=== PATIENT | female | born 1985 | race Caucasian/White ===

== ENCOUNTER 2016-06-02 16:45 | Emergency (ER) | payer MEDICAID ==
[~2016-06-02] VITALS: Ht 154.9 cm; Wt 97.0 kg
[~2016-06-02 16:45] MED LIST: TYLETAB34 PO; ZOFR4TAB PO
[2016-06-02 16:54] VITALS: BP 136/90; PULSE 88; RESP 16; TEMP 98.9; O2SAT 96
[2016-06-02] MEDS ORDERED: SODIUM CHLORIDE 0.9% FLUSH 5 ML FLUSH IVF PRN (20:45)
[2016-06-02] MEDS ORDERED: ONDANSETRON HCL 4 MG/2 ML VIAL IVP ONE (20:45)
[2016-06-02] MEDS ORDERED: HYDR-3583 PO (20:58)
[2016-06-02] MEDS ORDERED: LYRI150C PO (20:58)
[2016-06-02 20:59] VITALS: BP 136/82; PULSE 84; RESP 18; TEMP 98.9; O2SAT 97
[2016-06-02] MEDS: SODIUM CHLOR 0.9% 1000 ML INJ 1,000 ML IV SCH ×3 (21:33→23:27)
[2016-06-02 21:40] LABS: BLOOD, URINE LARGE (NEG); GLUCOSE,URINE NEG (NEG); KETONE, URINE 40 mg/dL (NEG); NITRITE,URINE NEG (NEG)
[2016-06-02 21:47] LABS: METHOD OF COLLECTION VOIDED
[2016-06-02 21:48] LABS: URINE COLOR YELLOW (YELLW/STRAW)
[2016-06-02 21:49] LABS: BACTERIA, URINE FEW /hpf; COMMENT (UR) CULT NOT INDICATED; COMMENT2 (UR) MUCOUS PRESENT; CULTURE IF INDICATED CULT NOT INDICATED; SQUAMOUS EPITHELIAL CELL URINE > 8 /hpf (0-5)
[2016-06-02 21:52] LABS: AUTOMATED NEUTROPHIL # 7.1 TH/MM3 (1.8-7.7); BASOPHIL % 0.4 % (0.0-2.0); EOSINOPHIL # 0.2 TH/MM3 (0-0.4); EOSINOPHIL % 2.3 % (0.0-4.0); HEMATOCRIT 35.2 % (35.0-46.0); HEMO FLAGS DIFF FINAL; LYMPH % 25.4 % (9.0-44.0); LYMPHOCYTE # 2.7 TH/MM3 (1.0-4.8); MEAN CELL VOLUME 82.4 FL (80.0-100.0); MEAN CORPUSCULAR HEMOGLOBIN 27.8 PG (27.0-34.0); MEAN CORPUSCULAR HGB CONC 33.8 % (32.0-36.0); MONO % 5.5 % (0.0-8.0); NEUT % 66.4 % (16.0-70.0); PLATELET COUNT 246 TH/MM3 (150-450); RED BLOOD COUNT 4.27 MIL/MM3 (4.00-5.30); RED CELL DISTRIBUTION WIDTH 13.4 % (11.6-17.2); WHITE BLOOD COUNT 10.6 TH/MM3 (4.0-11.0)
[2016-06-02 22:01] LABS: CHLORIDE 108 MEQ/L (98-107); POTASSIUM 3.1 MEQ/L (3.5-5.1); SODIUM (NA) 141 MEQ/L (136-145)
[2016-06-02 22:04] LABS: ANION GAP 10 MEQ/L (5-15); BICARBONATE 23.3 MEQ/L (21.0-32.0)
[2016-06-02 22:05] LABS: BLOOD UREA NITROGEN 6 MG/DL (7-18)
[2016-06-02 22:07] LABS: ALT (GPT) 13 U/L (10-53); AST (GOT) 5 U/L (15-37); GLOMERULAR FILTRATION RATE 147 ML/MIN (>89)
[2016-06-02 22:09] LABS: TOTAL BILIRUBIN ADULT 0.4 MG/DL (0.2-1.0)
[2016-06-02 22:10] LABS: ALKALINE PHOSPHATASE 72 U/L (45-117)
[2016-06-02 22:25] LABS: BETA HCG QUANT 28982 MIU/ML (0-5)
[2016-06-02] MEDS ORDERED: ONDANSETRON HCL 4 MG/2 ML VIAL IV ONE (22:45)
[2016-06-02 23:17] VITALS: BP 128/80; PULSE 82; RESP 18; O2SAT 97
[2016-06-02] MEDS ORDERED: METOCLOPRAMIDE HCL 10 MG/2 ML VIAL IVS ONE (23:30)
[2016-06-03 00:32] VITALS: BP 132/78; PULSE 78; RESP 18; O2SAT 97
[2016-06-03] MEDS: SODIUM CHLOR 0.9% 1000 ML INJ 1,000 ML IV SCH (00:32)
--- NOTE | 2016-06-03 01:36 | RADHPO ---
EXAM DATE/TIME: 06/03/2016 00:41 [facility] COMPARISON: No previous studies available for comparison. INDICATIONS : Pelvic pain with . LAB(S): Beta-hC MEDICAL HISTORY : Renal calculi. . Methicillin-resistant Staphylococcus aureus. Ovarian cysts. Asthma. Renal i nfections. SURGICAL HISTORY : Cholecystectomy. ENCOUNTER: Initial ACUITY: 1 day PAIN SCORE: 6/10 LOCATION: Bilateral pelvis MEASUREMENTS: UTERUS: 9.5 x 5.7 x 4.8 cm ENDOMETRIAL STRIPE: 3 mm RIGHT OVARY: 3.8 x 3.6 x 2.5 cm LEFT OVARY: 2.9 x 2.1 x 1.6 cm FINDINGS: Within the uterus is a gestational sac the mean sac diameter corresponding to an estimated gestationa l age of 6 weeks 2 days. There are nabothian cysts suspected in the cervical region. A pole is present with an estimated gestational age of 6 weeks 5 days based on crown-rump length measurement, a nd a yolk sac is visualized. A heart rate of 132.32 beats per minute is noted. Right ovary cont ains a 2.7 x 2.3 x 2.1 cm simple cyst in the left ovary is normal. No free fluid. CONCLUSION: 1. Single viable intrauterine gestation. 2. Right ovarian cyst. Nathaniel Bingham MD on June 03, 2016 at 1:33 Board Certified Radiologist. This report was verified electronically.
[2016-06-03 02:13] VITALS: BP 126/76; PULSE 74; RESP 18; O2SAT 97
--- NOTE | 2016-06-03 02:18 | PD ---
HPI Chief Complaint: Abdominal Pain Time Seen by Provider: 20:24 Travel History International Travel<30 days: No Contact w/Intl Traveler<30days: No Traveled to known affect area: No History of Present Illness HPI The patient is a 30-year-old female, G3, P2, A0 who states she has been nauseated with vertigo for the past 3 days. She denies any headache or focal neurologic change. She states she is sexually active. She does not think she is . She said she had a fever of 101.3 several days ago. There is no fever here at this time. PFSH Past Medical History Asthma: Yes Diminished Hearing: No Genitourinary: Yes (KIDNEY INFECTIONS) Kidney Stones: Yes Immunizations Current: Yes Tetanus Vaccination: Unknown Influenza Vaccination: Yes ?: Unknown LMP: 04/25/2016 : 2 Para: 2 Past Surgical History Cholecystectomy: Yes Social History Alcohol Use: No Tobacco Use: No (QUIT SEPTEMBER 2015) Substance Use: No Allergies-Medications (Allergen,Severity, Reaction): Coded Allergies: Levaquin (Verified Allergy, Severe, anaphylaxis, 06/02/16) Ceclor (Verified Allergy, Intermediate, hives, 06/02/16) Rocephin (Verified Allergy, Intermediate, hives, swelling, 06/02/16) *MDRO Multi-Drug Resistant Organism (Verified Adverse Reaction, Unknown, ) 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 Reported Meds & Prescriptions Reported Meds & Active Scripts Active Reported Hydrocodone-Acetaminophen 10-325 mg Tab 1 Tab PO Q6H PRN Lyrica (Pregabalin) 150 Mg Cap 150 Mg PO DAILY Review of Systems Except as stated in HPI: all other systems reviewed are Neg Physical Exam Narrative GENERAL: The patient is slightly dehydrated, alert, oriented 3 in moderate apparent distress with the nausea/vomiting. Her vital signs show blood pressure 136/90 but are otherwise normal. SKIN: Warm and dry. No skin rash is seen. HEAD: Atraumatic. Normocephalic. EYES: Pupils equal and round. No scleral icterus. No injection or drainage. I cannot reproduce the patient's nystagmus with head movement. Modified Hallpike maneuver is negative. ENT: No nasal bleeding or discharge. Mucous membranes pink and moist. NECK: Trachea midline. No JVD. CARDIOVASCULAR: Regular rate and rhythm. No murmur appreciated. RESPIRATORY: No accessory muscle use. Clear to auscultation. Breath sounds equal bilaterally. GASTROINTESTINAL: Abdomen soft, with tenderness in the right pelvis to direct palpation. Nondistended. Hepatic and splenic margins not palpable. No guarding or rebound is present. MUSCULOSKELETAL: No obvious deformities. No clubbing. No cyanosis. No edema. NEUROLOGICAL: Awake and alert. No obvious cranial nerve deficits. Motor grossly within normal limits. Normal speech. PSYCHIATRIC: Appropriate mood and affect; insight and judgment normal. Data Data Last Documented VS Vital Signs Date Time Temp Pulse Resp B/P Pulse Ox O2 Delivery O2 Flow Rate FiO2 06/03/16 02:13 74 18 126/76 97 Room Air 06/02/16 20:59 98.9 Orders Ed Urine Pregnancytest Poc (06/02/16 17:09) Beta Hcg (Quant/Titer) (06/02/16 20:35) Complete Blood Count With Diff (06/02/16 20:35) Comprehensive Metabolic Panel (06/02/16 20:35) Lipase (06/02/16 20:35) Urinalysis - C+S If Indicated (06/02/16 20:35) Iv Access Insert/Monitor (06/02/16 20:35) Ecg Monitoring (06/02/16 20:35) Oximetry (06/02/16 20:35) Ondansetron Inj (Zofran Inj) (06/02/16 20:45) Sodium Chloride 0.9% Flush (Ns Flush) (06/02/16 20:45) Electrocardiogram (06/02/16 20:35) Sodium Chlor 0.9% 1000 Ml Inj (Ns 1000 M (06/02/16 20:45) Ondansetron Inj (Zofran Inj) (06/02/16 22:45) Metoclopramide Inj (Reglan Inj) (06/02/16 23:30) Sodium Chlor 0.9% 1000 Ml Inj (Ns 1000 M (06/02/16 23:30) Us Pelvis (Ques Pr/Ect)W Trans (06/03/16 23:11) Labs Laboratory Tests Test 06/02/16 06/02/16 21:30 21:40 Urine Collection Type VOIDED Urine Color YELLOW Urine Turbidity CLEAR Urine pH 6.0 Urine Specific [place] 1.033 Urine Protein TRACE mg/dL Urine Glucose (UA) NEG mg/dL Urine Ketones 40 mg/dL Urine Occult Blood LARGE Urine Nitrite NEG Urine Bilirubin NEG Urine Leukocyte Esterase NEG Urine RBC 4-9 /hpf Urine WBC 3-5 /hpf Urine Squamous Epithelial > 8 /hpf Cells Urine Bacteria FEW /hpf Microscopic Urinalysis Comment CULT NOT INDICATED Urine Collection Time 2130 White Blood Count 10.6 TH/MM3 Red Blood Count 4.27 MIL/MM3 Hemoglobin 11.9 GM/DL Hematocrit 35.2 % Mean Corpuscular Volume 82.4 FL Mean Corpuscular Hemoglobin 27.8 PG Mean Corpuscular Hemoglobin 33.8 % Concent Red Cell Distribution Width 13.4 % Platelet Count 246 TH/MM3 Mean Platelet Volume 8.6 FL Neutrophils (%) (Auto) 66.4 % Lymphocytes (%) (Auto) 25.4 % Monocytes (%) (Auto) 5.5 % Eosinophils (%) (Auto) 2.3 % Basophils (%) (Auto) 0.4 % Neutrophils # (Auto) 7.1 TH/MM3 Lymphocytes # (Auto) 2.7 TH/MM3 Monocytes # (Auto) 0.6 TH/MM3 Eosinophils # (Auto) 0.2 TH/MM3 Basophils # (Auto) 0.0 TH/MM3 CBC Comment DIFF FINAL Differential Comment Sodium Level 141 MEQ/L Potassium Level 3.1 MEQ/L Chloride Level 108 MEQ/L Carbon Dioxide Level 23.3 MEQ/L Anion Gap 10 MEQ/L Blood Urea Nitrogen 6 MG/DL Creatinine 0.49 MG/DL Estimat Glomerular Filtration 147 ML/MIN Rate Random Glucose 81 MG/DL Calcium Level 8.2 MG/DL Total Bilirubin 0.4 MG/DL Aspartate Amino Transf 5 U/L (AST/SGOT) Alanine Aminotransferase 13 U/L (ALT/SGPT) Alkaline Phosphatase 72 U/L Total Protein 7.3 GM/DL Albumin 3.2 GM/DL Lipase 62 U/L Human Chorionic Gonadotropin, [address]48 MIU/ML Quant MDM Medical Decision Making Medical Screen Exam Complete: Yes Emergency Medical Condition: Yes Medical Record Reviewed: Yes Interpretation(s) The complete metabolic profile shows an albumin of 3.2, calcium of 8.2, potassium 3.1 but is otherwise normal. Differential Diagnosis Pregnancyintrauterine, ectopic , gastroenteritis, colitis, gastritis, dehydration, electrolyte disorder, hyperemesis gravidarum Narrative Course The patient may have a gastroenteritis, she had diarrhea slightly yesterday. She probably has hyperemesis gravidarum since she is beginning to get into the stage of where this may appear. Her potassium is slightly low and she will be given Zofran for this. She should follow-up with OB. Diagnosis Primary Impression: Gastroenteritis Additional Impressions: Hyperemesis gravidarum before end of 22 week gestation with electrolyte imbalance Intrauterine Ruled Out: Ectopic Additional Instructions: As we discussed, follow-up with an camp maintenance supervisor. He will be given the results of your positive test and you can get an camp maintenance supervisor at the health department. Med/Other Pt SpecificInfo: Prescription(s) given Scripts Ondansetron (Zofran)4 Mg Tab4 Mg PO Q6HR PRN (NAUSEA OR VOMITING) #30 TAB Ref 0 Prov:Hi Herr MD 06/03/16 Disposition: 01 DISCHARGE HOME Condition: Stable Hi Herr MD Jun 03, 2016 02:18
[2016-06-03] MEDS ORDERED: ZOFR4TAB PO (02:23)
[2016-06-03] MEDS ORDERED: POTASSIUM CHLORIDE 20 MEQ CONTROLLED RELEASE TAB PO ONE (02:30)
--- NOTE | 2016-06-03 16:29 | EKG ---
Date Performed: 06/02/2016 Time Performed: 20:49:14 PTAGE: 30 years EKG: Sinus rhythm Normal ECG NO PREVIOUS TRACING DOCTOR: Ernst Sylvester Interpretating Date/Time 06/03/2016 16:27:57
== END 2016-06-03 02:44 | disposition home or self-care (01) ==
LOC: PHED 16:45
DX: O99.612 Diseases of the digestive system complicating pregnancy, second trimester (principal); O21.1 Hyperemesis gravidarum with metabolic disturbance; Z3A.22 22 weeks gestation of pregnancy
CPT/HCPCS: 76700; 76817; 80053; 81001; 83690; 84702; 84703; 85025; 93005; 96361; 96374; 96375; 96376; 99284; J2405; J2765; J7030

== ENCOUNTER 2016-06-14 22:37 | Emergency (ER) | payer MEDICAID ==
[~2016-06-14 22:37] MED LIST changes: +HYDR-3583 PO; +LYRI150C PO; -TYLETAB34 PO
[2016-06-14 22:50] VITALS: BP 132/77; PULSE 72; RESP 20; TEMP 98.8; O2SAT 100
[2016-06-15] VITALS (7 sets, daily range): BP systolic 112–142; BP diastolic 62–90; PULSE 69–84; RESP 16–20; TEMP 98.2–98.3; O2SAT 97–99
[2016-06-15 00:11] LABS: BLOOD, URINE LARGE (NEG); GLUCOSE,URINE NEG (NEG); KETONE, URINE NEG (NEG); NITRITE,URINE NEG (NEG)
[2016-06-15 00:29] LABS: METHOD OF COLLECTION CLEAN CATCH; URINE COLOR ORANGE (YELLW/STRAW)
[2016-06-15 00:30] LABS: MUCUS URINE OCC /lpf (OCC); RBC, URINE INNUM /hpf (0-3); SQUAMOUS EPITHELIAL CELL URINE 0-5 /hpf (0-5)
[2016-06-15 00:31] LABS: COMMENT (UR) CULT NOT INDICATED; CULTURE IF INDICATED CULT NOT INDICATED
[2016-06-15] MEDS ORDERED: SODIUM CHLOR 0.9% 1000 ML INJ 1,000 ML IV SCH (01:30)
[2016-06-15] MEDS ORDERED: ONDANSETRON HCL 4 MG/2 ML VIAL IV PUSH ONE (01:30)
[2016-06-15] MEDS ORDERED: MORPHINE SULFATE 4 MG/ML INJ IV PUSH ONE ×3 (02:00→06:30)
[2016-06-15] MEDS ORDERED: CIPR-9 PO (02:38)
[2016-06-15 03:19] LABS: AUTOMATED NEUTROPHIL # 8.3 TH/MM3 (1.8-7.7); BASOPHIL % 0.3 % (0.0-2.0); EOSINOPHIL # 0.2 TH/MM3 (0-0.4); EOSINOPHIL % 2.1 % (0.0-4.0); HEMATOCRIT 35.9 % (35.0-46.0); HEMO FLAGS DIFF FINAL; LYMPH % 20.2 % (9.0-44.0); LYMPHOCYTE # 2.3 TH/MM3 (1.0-4.8); MEAN CELL VOLUME 81.7 FL (80.0-100.0); MEAN CORPUSCULAR HEMOGLOBIN 26.6 PG (27.0-34.0); MEAN CORPUSCULAR HGB CONC 32.6 % (32.0-36.0); MONO % 3.9 % (0.0-8.0); NEUT % 73.5 % (16.0-70.0); PLATELET COUNT 278 TH/MM3 (150-450); RED CELL DISTRIBUTION WIDTH 13.6 % (11.6-17.2); WHITE BLOOD COUNT 11.2 TH/MM3 (4.0-11.0)
[2016-06-15 03:26] LABS: POTASSIUM 3.6 MEQ/L (3.5-5.1)
[2016-06-15 03:29] LABS: BICARBONATE 21.8 MEQ/L (21.0-32.0)
[2016-06-15] MEDS ORDERED: SODIUM CHLOR 0.9% 1000 ML INJ 1,000 ML IV ONE (04:45)
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
--- NOTE | 2016-06-15 06:38 | RADHPO ---
EXAM DATE/TIME: 06/15/2016 05:51 [facility] COMPARISON: US PELVIS (QUEST PREG/ECTOPIC) W/TRANSVAG, June 03, 2016, 0:41. INDICATIONS : Vaginal bleeding. LAB(S): Beta-hC,214 MEDICAL HISTORY : Methicillin-resistant Staphylococcus aureus. Asthma. SURGICAL HISTORY : Cholecystectomy. ENCOUNTER: Initial ACUITY: 1 week PAIN SCORE: 7/10 LOCATION: Right pelvis MEASUREMENTS: UTERUS: 10.3 x 4.9 x 5.3 cm ENDOMETRIAL STRIPE: 16 mm RIGHT OVARY: 3.3 x 1.7 x 1.8 cm LEFT OVARY: 2.7 x 2.2 x 2.5 cm FINDINGS: Endometrial thickening. Nabothian cysts are present at the cervix. A gestational sac seen previously is no longer visualized. 1.5 cm complex 1.1 cm complex ovarian cyst on the right. There is increased blood flow seen on color Doppler imaging at the level of the endometrial stripe without discrete mass . CONCLUSION: Intrauterine gestation is no longer present. Endometrial thickening is seen up to 16 mm with mild inc reased blood flow on color Doppler imaging, without well-defined mass like area. Short interval sonog raphic followup recommended. Nathaniel Bingham MD on June 15, 2016 at 6:33 Board Certified Radiologist. This report was verified electronically.
[2016-06-15] MEDS ORDERED: ZOFR4TAB3 SL (06:49)
[2016-06-15] MEDS ORDERED: HYDR-3533 PO (06:49)
[2016-06-15] MEDS ORDERED: KETOROLAC TROMETHAMINE 30 MG/ML (IVP) VIAL IV PUSH ONE (07:00)
[2016-06-15] MEDS ORDERED: IBUP800T23 PO (07:05)
== END 2016-06-15 07:45 | disposition home or self-care (01) ==
LOC: PHED 22:37
DX: O03.9 Complete or unspecified spontaneous abortion without complication (principal)
CPT/HCPCS: 76700; 76817; 80048; 81001; 84702; 85025; 86901; 96361; 96374; 96375; 96376; 99284; J1885; J2270; J2405; J7030

== ENCOUNTER 2016-08-10 00:21 | Emergency (ER) | payer OTHER, MEDICAID ==
[~2016-08-10] VITALS: Ht 154.9 cm; Wt 98.5 kg
[~2016-08-10 00:21] MED LIST changes: +CIPR-9 PO; +HYDR-3533 PO; -HYDR-3583 PO; +IBUP800T23 PO; -LYRI150C PO; -ZOFR4TAB PO; +ZOFR4TAB3 SL
[2016-08-10 00:31] VITALS: BP 133/92; PULSE 94; RESP 16; TEMP 98.2; O2SAT 100
[2016-08-10] MEDS ORDERED: TEGR200T PO (02:13)
[2016-08-10] MEDS ORDERED: HYDR-3580 PO (02:13)
[2016-08-10] MEDS ORDERED: oxyCODONE/ACETAMINOPHEN 5 MG/325 MG TAB PO ONE (02:15)
[2016-08-10] MEDS ORDERED: CYCLOBENZAPRINE HCL 10 MG TAB PO ONE (02:15)
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
[2016-08-10 02:55] VITALS: BP 128/88; PULSE 82; RESP 16; O2SAT 100
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
[2016-08-10] MEDS ORDERED: CYCL1TAB29 PO (03:33)
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
== END 2016-08-10 03:50 | disposition home or self-care (01) ==
LOC: PHED 00:21
DX: S16.1XXA Strain of muscle, fascia and tendon at neck level, initial encounter (principal); M25.511 Pain in right shoulder; J45.909 Unspecified asthma, uncomplicated; G89.29 Other chronic pain; V49.49XA Driver injured in collision with other motor vehicles in traffic accident, initial encounter; Y92.410 Unspecified street and highway as the place of occurrence of the external cause; Z72.0 Tobacco use
CPT/HCPCS: 72125; 73030; 99284; L0150

== ENCOUNTER 2017-01-05 11:47 | Emergency (ER) | payer MEDICAID ==
[~2017-01-05] VITALS: Ht 157.5 cm; Wt 85.0 kg
[~2017-01-05 11:47] MED LIST changes: -CIPR-9 PO; +CYCL1TAB29 PO; -HYDR-3533 PO; +HYDR-3580 PO; -IBUP800T23 PO; +TEGR200T PO; -ZOFR4TAB3 SL
[2017-01-05 11:49] VITALS: BP 135/84; PULSE 110; RESP 20; TEMP 98.8; O2SAT 98
--- NOTE | 2017-01-05 12:00 | PD ---
Physical Exam Time Seen by Provider: 11:59 Narrative 31yo F c/o sore throat and bilat ear pain x 2 days. Unknown fever. Can swallow own saliva. Patient seen in triage. VS reviewed. Awaiting be placement. Data Data Last Documented VS Vital Signs Date Time Temp Pulse Resp B/P (MAP) Pulse Ox O2 Delivery O2 Flow Rate FiO2 01/05/17 11:49 98.8 110 20 135/84 (101) 98 Room Air MDM Supervised Visit with CIARAN: Deneen Caldera Jan 05, 2017 12:00
--- NOTE | 2017-01-05 12:48 | PD ---
HPI Chief Complaint: ENT Complaint Time Seen by Provider: 12:48 Travel History International Travel<30 days: No Contact w/Intl Traveler<30days: No Traveled to known affect area: No History of Present Illness HPI 31-year-old female presents to [facility] with several day history of upper respiratory congestion, headache, postnasal drip, and sore throat. Patient states the sore throat is worse in the last 24 hours. History of sinus trouble with sinus allergies and postnasal drip. She has no heartburn, abdominal pain, nausea, vomiting, or diarrhea. She denies significant fever. Patient has had [place] whatsoever in the last 2 days. Patient states all the mucus that she stopped upper blown out is clear. She has kids in school which are both sick currently with stomach flu. Patient states she is allergic to cefaclor, ceftriaxone, levofloxacin, and has history of MRSA. PFSH Past Medical History Arthritis: Yes Asthma: Yes Diminished Hearing: No Genitourinary: Yes (KIDNEY INFECTIONS) Kidney Stones: Yes Neurologic: Yes (TRIGEMINAL NEURALGIA) Immunizations Current: Yes ?: Not : 4 Para: 2 Miscarriage: 1 Past Surgical History Cholecystectomy: Yes Social History Alcohol Use: No Tobacco Use: Yes (2-5 CIGS/DAY) Substance Use: No Allergies-Medications (Allergen,Severity, Reaction): Coded Allergies: levofloxacin (Verified Allergy, Severe, anaphylaxis, 01/05/17) cefaclor (Verified Allergy, Intermediate, hives, 01/05/17) ceftriaxone (Verified Allergy, Intermediate, hives, swelling, 01/05/17) *MDRO Multi-Drug Resistant Organism (Verified Adverse Reaction, Unknown, ) 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 Reported Meds & Prescriptions Reported Meds & Active Scripts Active Flexeril (Cyclobenzaprine HCl) 10 Mg Tab 10 Mg PO TID Reported Hydrocodone-Acetaminophen 7.5-325 mg Tab 1 Tab PO Q6H PRN Tegretol (Carbamazepine) 200 Mg Tab 200 Mg PO DAILY Review of Systems Except as stated in HPI: all other systems reviewed are Neg General / Constitutional: No: Fever Eyes: No: Visual changes HENT: Positive: Headaches, Sore Throat, Rhinitis, Rhinorrhea, Congestion, Earache, Other (postnasal drip.), No: Vertigo, Lightheadedness, Nosebleed, Neck Stiffness, Neck Pain, Masses, Gingival Bleeding, Dental Difficulties, Ear Discharge Cardiovascular: No: Chest Pain or Discomfort Respiratory: Positive: Cough (mild intermittent), No: Shortness of Breath Gastrointestinal: No: Nausea, Vomiting, Diarrhea, Abdominal Pain Genitourinary: No: Dysuria Musculoskeletal: No: Pain Skin: No Rash Neurologic: No: Weakness Psychiatric: No: Depression Endocrine: No: Polydipsia Hematologic/Lymphatic: No: Easy Bruising Physical Exam Narrative GENERAL: Patient appears in mild distress. SKIN: Warm and dry. Normal color. Normal turgor. HEAD: Atraumatic. Normocephalic. EYES: Pupils equal and round. No scleral icterus. No injection or drainage. ENT: No nasal bleeding or discharge. Mucous membranes pink and moist. TMs are clear bilaterally with increased mucus in the left. Sinuses are nontender. Posterior pharynx appears mildly erythematous with clear postnasal drip noted. No significant lymphadenopathy or tonsillitis. Uvula is midline. NECK: Trachea midline. Supple nontender without lymphadenopathy. CARDIOVASCULAR: Regular rate and rhythm. No murmurs gallops or rubs. RESPIRATORY: No accessory muscle use. Clear to auscultation. Breath sounds equal bilaterally. GASTROINTESTINAL: Abdomen soft, non-tender, nondistended. Hepatic and splenic margins not palpable. MUSCULOSKELETAL: Extremities without clubbing, cyanosis, or edema. No obvious deformities. NEUROLOGICAL: Awake and alert. No obvious cranial nerve deficits. Motor grossly within normal limits. Five out of 5 muscle strength in the arms and legs. Normal speech. PSYCHIATRIC: Appropriate mood and affect; insight and judgment normal. Data Data Last Documented VS Vital Signs Date Time Temp Pulse Resp B/P (MAP) Pulse Ox O2 Delivery O2 Flow Rate FiO2 01/05/17 11:49 98.8 110 20 135/84 (101) 98 Room Air Orders Orders Group A Rapid Strep Screen (01/05/17 12:00) Strep Culture (Group A) (01/05/17 12:00) [facility] Medical Decision Making Medical Screen Exam Complete: Yes Emergency Medical Condition: Yes Differential Diagnosis Upper respiratory infection. Allergic rhinitis. Pharyngitis. Postnasal drip. Early sinusitis. Narrative Course Rapid strep was collected and sent in triage Rapid strep is negative. Patient will be treated with azithromycin Dosepak as directed. Patient also recommend use Flonase nasal spray 2 sprays each nostril daily. Patient use [id number] cough medicine and allergy medicine as needed. Work note is given. Follow up if symptoms do not improve or worsen as discussed. Diagnosis Primary Impression: Upper respiratory infection, acute Referrals: Primary Care Physician Patient Instructions: General Instructions Departure Forms: Work Release Enter return to work date: Jan 06, 2017 Additional Instructions: Rapid strep is negative. Patient will be treated with azithromycin Dosepak as directed. Patient also recommend use Flonase nasal spray 2 sprays each nostril daily. Patient use [id number] cough medicine and allergy medicine as needed. Work note is given. Follow up if symptoms do not improve or worsen as discussed. Med/Other Pt SpecificInfo: Prescription(s) given Scripts Fluticasone Nasal [place] (Flonase Nasal [place]) 50 Mcg/Act [place] 100 MCG EACH NARE BID for Allergies, #1 BOTTLE 0 Refills Prov: Ezio Marroquin MD 01/05/17 Azithromycin (Azithromycin) 250 Mg Tab 250 MG PO DIRECTED for Infection, #6 TAB 0 Refills Take 2 tabs (500 mg) on day 1 then 1 tab daily x 4 days. Prov: Ezio Marroquin MD 01/05/17 Disposition: 01 DISCHARGE HOME Condition: Stable Yury Champagne Jan 05, 2017 12:48
[2017-01-05] MEDS ORDERED: FLUT1SPR5 EACH NARE (12:54)
[2017-01-05] MEDS ORDERED: AZIT250T3 PO (12:54)
== END 2017-01-05 13:11 | disposition home or self-care (01) ==
LOC: NEPK 11:47
DX: J06.9 Acute upper respiratory infection, unspecified (principal); J45.909 Unspecified asthma, uncomplicated; M19.90 Unspecified osteoarthritis, unspecified site; G50.0 Trigeminal neuralgia
CPT/HCPCS: 87081; 87880; 99283

== ENCOUNTER 2017-06-21 19:04 | Emergency (ER) | payer MEDICAID ==
[~2017-06-21] VITALS: Ht 154.9 cm; Wt 79.5 kg
[~2017-06-21 19:04] MED LIST changes: +AZIT250T3 PO; +CYCL10TA PO; -CYCL1TAB29 PO; +FLUT1SPR5 EACH NARE
[2017-06-21 19:06] VITALS: BP 157/84; PULSE 88; RESP 16; TEMP 99.1; O2SAT 100
[2017-06-21] MEDS ORDERED: CLEO300C2 PO (20:35)
[2017-06-21] MEDS ORDERED: DICL50TA3 PO (20:35)
--- NOTE | 2017-06-21 20:40 | PD ---
HPI Chief Complaint: Oral / Dental Pain or Problem Time Seen by Provider: 20:27 Travel History International Travel<30 days: No Contact w/Intl Traveler<30days: No Traveled to known affect area: No History of Present Illness HPI 31-year-old white female presents to the emergency department with complaints of dental pain for the past week. She states the pain is moderate. She also has some nausea and an episode of vomiting earlier today. She denies any fever chills. No ear pain, sore throat, cough, congestion or bowel pain. PFSH Past Medical History Arthritis: Yes Asthma: Yes Diminished Hearing: No Genitourinary: Yes (KIDNEY INFECTIONS) Kidney Stones: Yes Neurologic: Yes (TRIGEMINAL NEURALGIA) Immunizations Current: Yes Tetanus Vaccination: < 5 Years ?: Not LMP: ended a few days ago : 4 Para: 2 Miscarriage: 1 Past Surgical History Cholecystectomy: Yes Social History Alcohol Use: No Tobacco Use: Yes (2-5 CIGS/DAY) Substance Use: No Allergies-Medications (Allergen,Severity, Reaction): Coded Allergies: levofloxacin (Verified Allergy, Severe, anaphylaxis, 01/05/17) cefaclor (Verified Allergy, Intermediate, hives, 01/05/17) ceftriaxone (Verified Allergy, Intermediate, hives, swelling, 01/05/17) *MDRO Multi-Drug Resistant Organism (Verified Adverse Reaction, Unknown, ) 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 Flexeril (Cyclobenzaprine HCl) 10 Mg Tab 10 Mg PO TID Reported Hydrocodone-Acetaminophen 7.5-325 mg Tab 1 Tab PO Q6H PRN Tegretol (Carbamazepine) 200 Mg Tab 200 Mg PO DAILY Review of Systems Except as stated in HPI: all other systems reviewed are Neg Physical Exam Narrative GENERAL: Well-developed, well-nourished in no acute distress. Nontoxic appearing. HEAD: Normocephalic, atraumatic. EYES: Pupils equal round and reactive. Extraocular motions intact. No scleral icterus. No injection or drainage. ENT: TMs clear without erythema. The external auditory canals clear. Nose: clear . Posterior pharynx is pink and moist. No tonsillar edema or exudate. Uvula midline. Airway patent. Patient has dental decay in tooth #15 NECK: Trachea midline.Supple, nontender, moves head freely. No central bony tenderness or spasm. CARDIOVASCULAR: Regular rate and rhythm without murmurs, gallops, or rubs. RESPIRATORY: Clear to auscultation. Breath sounds equal bilaterally. No wheezes , rales, or rhonchi. GASTROINTESTINAL: Abdomen soft, non-tender, nondistended. No hepato-splenomegaly , or palpable masses. No guarding. EXTREMITIES: No clubbing, cyanosis, or edema. No joint tenderness, effusion, or edema noted. BACK: Nontender without deformity or crepitance. No flank tenderness. Data Data Last Documented VS Vital Signs Date Time Temp Pulse Resp B/P (MAP) Pulse Ox O2 Delivery O2 Flow Rate FiO2 06/21/17 19:06 99.1 88 16 157/84 (108) 100 Room Air Orders Orders Ed Discharge Order (06/21/17 20:33) MDM Medical Decision Making Medical Screen Exam Complete: Yes Emergency Medical Condition: Yes Medical Record Reviewed: Yes Differential Diagnosis MDM: Moderate Differential diagnoses: Dental abscess, dental caries, osteitis, cellulitis Narrative Course This is dental caries, dentalgia Diagnosis Primary Impression: Dental caries Additional Impression: Dentalgia Patient Instructions: General Instructions Additional Instructions: Rest. [place] gargles. [place] oil on cotton balls. Clindamycin and diclofenac. follow-up with a dentist as soon as possible. And return to the ER if any problems. Med/Other Pt SpecificInfo: Prescription(s) given Scripts Diclofenac Sodium DR (Diclofenac Sodium DR) 50 Mg Tabdr 50 MG PO TID, #12 TAB 0 Refills Prov: Bowen Moser MD 06/21/17 Clindamycin (Cleocin) 300 Mg Cap 300 MG PO Q6H for Infection, #40 CAP 0 Refills Prov: Bowen Moser MD 06/21/17 Disposition: 01 DISCHARGE HOME Condition: Stable Ken Willoughby Jun 21, 2017 20:40
== END 2017-06-21 20:45 | disposition home or self-care (01) ==
LOC: NEPD 19:04
DX: K02.9 Dental caries, unspecified (principal); J45.909 Unspecified asthma, uncomplicated; M19.90 Unspecified osteoarthritis, unspecified site; F17.210 Nicotine dependence, cigarettes, uncomplicated
CPT/HCPCS: 99283

== ENCOUNTER 2017-06-28 18:13 | Emergency (ER) | payer MEDICAID ==
[~2017-06-28] VITALS: Ht 154.9 cm; Wt 94.7 kg
[~2017-06-28 18:13] MED LIST changes: +CLEO300C2 PO; +DICL50TA3 PO
[2017-06-28 18:26] VITALS: BP 128/82; PULSE 97; RESP 20; TEMP 98.5; O2SAT 97
[2017-06-28] MEDS ORDERED: SUMA100T2 PO (21:03)
[2017-06-28] MEDS ORDERED: TYLE325T PO (22:18)
== END 2017-06-28 18:35 | disposition left against medical advice (07) ==
LOC: PHED 18:13
DX: G43.909 Migraine, unspecified, not intractable, without status migrainosus (principal); R11.10 Vomiting, unspecified
CPT/HCPCS: 99281

== ENCOUNTER 2017-06-28 19:18 | Emergency (ER) | payer MEDICAID ==
[2017-06-28 19:21] VITALS: BP 130/84; PULSE 90; RESP 20; TEMP 97.5; O2SAT 97
[2017-06-28 19:51] VITALS: BP 136/87; PULSE 88; RESP 18; O2SAT 95
--- NOTE | 2017-06-28 19:58 | PD ---
HPI Chief Complaint: Headache Time Seen by Provider: 19:42 Travel History International Travel<30 days: No Contact w/Intl Traveler<30days: No Traveled to known affect area: No History of Present Illness HPI 31yo F with PMH of migraine headache here with c/o left sided headache since yesterday. Said it feels like her migraine but she took sumatriptan and still had headache. It is associated with photophobia, nausea and vomiting. Denies any fever, neck pain, trauma, focal weakness or numbness, chest pain, sob, abdominal pain. PFSH Past Medical History Arthritis: Yes Asthma: Yes Diminished Hearing: No Genitourinary: Yes (KIDNEY INFECTIONS) Kidney Stones: Yes Neurologic: Yes (TRIGEMINAL NEURALGIA) Immunizations Current: Yes ?: Not LMP: 02 07 18 : 4 Para: 2 Miscarriage: 1 Past Surgical History Cholecystectomy: Yes Social History Alcohol Use: No Tobacco Use: Yes (2-5 CIGS/DAY) Substance Use: No Allergies-Medications (Allergen,Severity, Reaction): Coded Allergies: levofloxacin (Verified Allergy, Severe, anaphylaxis, 06/28/17) cefaclor (Verified Allergy, Intermediate, hives, 06/28/17) ceftriaxone (Verified Allergy, Intermediate, hives, swelling, 06/28/17) *MDRO Multi-Drug Resistant Organism (Verified Adverse Reaction, Unknown, ) 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 SKIN: Focused skin assessment warm/dry. HEAD: Atraumatic. Normocephalic. EYES: Pupils equal and round at 5mm bilaterally. EOMI. ENT: No nasal bleeding or discharge. Mucous membranes pink and moist. NECK: Trachea midline. No JVD. CARDIOVASCULAR: Regular rate and rhythm. No murmur appreciated. RESPIRATORY: No accessory muscle use. Clear to auscultation. Breath sounds equal bilaterally. GASTROINTESTINAL: Abdomen soft, non-tender, nondistended. No rebound tenderness or guarding. MUSCULOSKELETAL: No obvious deformities. No clubbing. No cyanosis. No edema. NEUROLOGICAL: Awake and alert. No obvious cranial nerve deficits. Motor grossly within normal limits in all extremities. Sensation intact. Normal speech. PSYCHIATRIC: Appropriate mood and affect; insight and judgment normal. Data Data Last Documented VS Vital Signs Date Time Temp Pulse Resp B/P (MAP) Pulse Ox O2 Delivery O2 Flow Rate FiO2 06/28/17 21:51 70 18 231/80 (130) 98 Room Air 06/28/17 19:21 97.5 Orders Orders Ketorolac Inj (Toradol Inj) (06/28/17 20:00) Metoclopramide Inj (Reglan Inj) (06/28/17 20:00) Sodium Chlor 0.9% 1000 Ml Inj (Ns 1000 M (06/28/17 20:00) Prochlorperazine Inj (Compazine Inj) (06/28/17 21:15) MDM Medical Decision Making Medical Screen Exam Complete: Yes Emergency Medical Condition: Yes Differential Diagnosis Migraine headache vs. sinus headache vs. tension headache Narrative Course 31yo F with left sided headache that feels like her migraine headache. However , headache did not resolve with sumatriptan at home. No focal neurologic deficits. Pt initially given toradol, NS IVF and reglan. Pt reevaluated and still with headache so given compazine. Pt reevaluated after compazine and said headache has completely resolved. No longer nauseous and wants to go home. Pt has neurologist to follow up with. Return precautions given. Diagnosis Primary Impression: Headache Qualified Codes: R51 - Headache Patient Instructions: General Instructions Departure Forms: Tests/Procedures Additional Instructions: Please follow up with your neurologist in 2-3 days. Return to the ED if symptoms worsen. Med/Other Pt SpecificInfo: Prescription(s) given Scripts Acetaminophen (Tylenol) 325 Mg Tab 650 MG PO Q6H Y for PAIN SCALE 1 TO 4, #20 TAB 0 Refills Prov: Joceline Mckinney 06/28/17 Disposition: 01 DISCHARGE HOME Condition: Stable MckinneyJoceline DO Jun 28, 2017 19:58
[2017-06-28] MEDS ORDERED: KETOROLAC TROMETHAMINE 30 MG/ML (IVP) VIAL IV PUSH ONE (20:00)
[2017-06-28] MEDS ORDERED: METOCLOPRAMIDE INJ 10 MG in SODIUM CHLORIDE 0.9% INJ 50 ML IV ONE (20:00)
[2017-06-28] MEDS ORDERED: SODIUM CHLOR 0.9% 1000 ML INJ 1,000 ML IV ONE (20:00)
[2017-06-28 20:57] VITALS: BP 120/78; PULSE 80; RESP 18; O2SAT 98
[2017-06-28] MEDS ORDERED: SUMA100T2 PO (21:03)
[2017-06-28] MEDS ORDERED: PROCHLORPERAZINE INJ 10 MG/2 ML VIAL IV PUSH ONE (21:15)
[2017-06-28 21:51] VITALS: BP_SYST 131; BP_SYST 231; BP_DIAS 80; PULSE 70; RESP 18; O2SAT 98
[2017-06-28] MEDS ORDERED: TYLE325T PO (22:18)
[2017-06-28 22:36] VITALS: BP 127/88
== END 2017-06-28 22:48 | disposition home or self-care (01) ==
LOC: PHED 19:18
DX: R51 Headache (principal); J45.909 Unspecified asthma, uncomplicated; F17.210 Nicotine dependence, cigarettes, uncomplicated; Z88.8 Allergy status to other drugs, medicaments and biological substances
CPT/HCPCS: 96361; 96365; 96375; 99284; J0780; J1885; J2765; J7030

== ENCOUNTER 2017-09-11 13:31 | Emergency (ER) | payer MEDICAID ==
[2017-09-11] MEDS: KETOROLAC TROMETHAMINE 60 MG/2 ML (IM) VIAL IM (15:22)
== END 2017-09-11 15:37 | disposition home or self-care (01) ==
LOC: PHEFT 13:31
DX: L55.9 Sunburn, unspecified (principal); J45.909 Unspecified asthma, uncomplicated; G50.0 Trigeminal neuralgia; F17.210 Nicotine dependence, cigarettes, uncomplicated
CPT/HCPCS: 96372; 99283-25